=== PATIENT | male | born 1970 | race Caucasian/White ===

== ENCOUNTER → 2019-02-09 08:50 | Outpatient (CLI) | payer OTHER, SELFPAY ==
--- NOTE | 2019-02-09 08:55 | ECHOCS_ITS ---
Reason For Study: Fam Hx ASD Procedure This was a 2D Doppler, Color Flow transthoracic echocardiogram. The study was technically difficult. Due to body habitus. Exam performed in department. Left Ventricle Normal LV size. Left ventricular systolic function is normal. The estimated ejection fraction is 55 %. Normal diastology for age. No regional wall motion abnormalities noted. Right Ventricle Normal RV size. Normal systolic function. Atria Normal left atrium. Normal right atrium. Mitral Valve Normal mitral valve. Tricuspid Valve Normal tricuspid valve. Aortic Valve Normal aortic valve. Trisinus/trileaflet aortic valve. Pulmonic Valve Normal pulmonic valve. Great Vessels Normal aortic root. The pulmonary artery is normal size. Normal inferior vena cava. Pericardium/Pleural No pericardial effusion. Medication 20 gauge I.V. with prn adaptor inserted into right arm. Performed a rapid injection of agitated mix of 9 cc saline and 1cc air to assess for atrial septal defect. Diluted definity 3.0ml given slow IV push to enhance endocardial definition. MMode/2D Measurements & Calculations LVIDd: 5.3 cm IVSd: 1.0 cm Ao root diam: 2.8 cm LVIDs: 4.2 cm LVPWd: 0.99 cm RVDd: 3.6 cm FS: 21.7 % LAV(MOD-bp): 45.9 ml LA A4 area: 16.8 cm2 LA dimension(2D): 3.9 cm LAV(MOD-bp) Indexed: 21.3 ml/m2 LAV(MOD-sp2): 43.0 ml LAV(MOD-sp4): 46.3 ml RA A4 area: 17.1 cm2 Time Measurements MV dec time: 0.16 sec Doppler Measurements & Calculations MV E max paulie: 45.1 cm/sec Lat Peak E' Paulie: 8.9 cm/sec Med Peak E' Paulie: 10.8 cm/sec MV A max paulie: 38.2 cm/sec E/E' lat: 5.1 E/E' med: 4.2 MV E/A: 1.2 Ao V2 max: 95.4 cm/sec LV V1 max: 80.0 cm/sec PA V2 max: 93.5 cm/sec Ao max P.6 mmHg LV V1 max P.6 mmHg Interpretation Summary Normal LV size. Left ventricular systolic function is normal. The estimated ejection fraction is 55 %. Normal diastology for age. Contrast injection was performed. Ordering Physician: Ashlie Mueller Referring Physician: Ashlie Mueller Performed By: Lili Nam, PRANEETHCS, RVT
== END ==
PROVIDERS: Family Provider Internal Medicine; PCP Internal Medicine; Referring Provider Internal Medicine; Visit Provider Internal Medicine
DX: Z82.49 Family history of ischemic heart disease and other diseases of the circulatory system (principal)
CPT/HCPCS: 93306; Q9957; A4216; C8929

== ENCOUNTER → 2024-05-29 | Outpatient (CLI) | payer OTHER, SELFPAY ==
[2024-05-29 19:38] LABS: Hemoglobin A1c 5.4 % (<=5.6)
== END | disposition home or self-care (01) ==
PROVIDERS: PCP Internal Medicine; Referring Provider Internal Medicine; Visit Provider Internal Medicine
DX: E88.810 Metabolic syndrome (principal)
CPT/HCPCS: 36415; 83036